=== PATIENT | female | born 1960 | race Caucasian/White ===

== ENCOUNTER 2020-05-03 17:02 | Outpatient (REF) | payer OTHER, SELFPAY ==
[2020-05-04 15:42] LABS: Influenza A PCR NEGATIVE (Negative)
[2020-05-04 15:43] LABS: Influenza B PCR NEGATIVE (Negative); Resp Syncy Virus RNA Qual PCR NEGATIVE (Negative)
[2020-05-04 15:44] LABS: SARS COV2 PCR INHOUSE NEGATIVE (Negative)
== END 2020-05-03 17:03 | disposition home or self-care (01) ==
LOC: HO.LAB 17:02
PROVIDERS: Visit Provider Nurse Practitioner Family
DX: R50.9 Fever, unspecified (principal); Z20.828 Contact with and (suspected) exposure to other viral communicable diseases
CPT/HCPCS: 0241U; U0003

== ENCOUNTER 2020-05-31 20:27 | Emergency (ER) | payer MEDICARE, SELFPAY ==
[2020-05-31 20:43] VITALS: BP 145/77; BP 152/79; PULSE 70; PULSE 72; RESP 16; TEMP 37.1; O2SAT 97; BMI 40.6
--- NOTE | 2020-05-31 20:54 | ED.GENADULT ---
HPI - General Adult General Chief complaint: General Medical Stated complaint: HYPERTENSION Time Seen by Provider: 05/31/20 20:54 Source: patient Mode of arrival: ambulatory Limitations: no limitations History of Present Illness HPI narrative: Patient has history of anxiety and mild hypertension on hydrochlorothiazide feeling very anxious checked her blood pressure at home was 170/93 on arrival is 145/77 per EMS denies any headache no nausea no vomiting Related Data Home Medications Medication Instructions Recorded Confirmed atenolol 100 mg PO DAILY 06/06/20 06/06/20 atorvastatin 10 mg PO BEDTIME 06/06/20 06/06/20 buprenorphine-naloxone [Zubsolv] 1 tab SUBLINGUAL DAILY 06/06/20 06/06/20 cholecalciferol (vitamin D3) 125 mcg PO DAILY 06/06/20 06/06/20 [Vitamin D3] trazodone 150 mg PO BEDTIME 06/06/20 06/06/20 Previous Rx's Medication Instructions Recorded naloxegol 25 mg tablet 25 mg PO QAM #90 tab 04/27/20 amoxicillin 875 mg-potassium 1 tab PO BID 10 Days #20 tab 05/03/20 clavulanate 125 mg tablet lisinopril 40 mg tablet 40 mg PO DAILY #90 tab 05/30/20 lorazepam [Ativan] 1 mg PO BEDTIME PRN #14 tab 05/31/20 hydrochlorothiazide 25 mg tablet 25 mg PO DAILY #90 tab 06/21/20 Allergies Allergy/AdvReac Type Severity Reaction Status Date / Time diazepam [From VALIUM] AdvReac Mild NERVOUS Verified 05/31/20 20:42 hydrocodone [From Vicodin] AdvReac Mild VOMITING Verified 05/31/20 20:42 tramadol [From Ultram] AdvReac Mild VOMITING Verified 05/31/20 20:42 Review of Systems Review of Systems: Constitutional : No Weight loss, No Fever, No Chills ENT/Mouth : No sore throat, No Rhinorrhea Eyes: No Eye Pain, No Swelling Cardiovascular : No Chest Pain, no palpitations Respiratory : No Cough, No Sputum, no shortness of breath Gastrointestinal : no Nausea, No Vomiting, No Diarrhea, No abdominal Pain, no black stools Genitourinary : No Dysuria, No Urinary Frequency Musculoskeletal : No joint pain, No Myalgias, No Joint Swelling Skin : No Skin Lesions, No rash Neuro : No Weakness, No Numbness, No Dizziness, No Headache Psych : No Anxiety/Panic, No Depression Heme/Lymph: No Bruising, No Lymphadenopathy Endocrine : No Polyuria, No Polydipsia All other systems reviewed and are negative [facility], LAT[facility] Past Medical History Medical History Anxiety Hypertension Surgical History History of ankle surgery Hx of cataract extraction Hx of section Hx of tonsillectomy Physical Exam Vital Signs: Vital Signs: Last Vital Signs Temp 98.7 F 05/31/20 20:43 Pulse 72 05/31/20 20:43 Resp 16 05/31/20 20:43 BP 152/79 H 05/31/20 20:43 Pulse Ox 97 05/31/20 20:43 Body Mass Index 40.6 Appearance: Alert. Oriented X3. No acute distress. Very anxious blood pressure 152/79 Eyes: Pupils equal, round and reactive to light. ENT: Pharynx normal. Neck: Normal inspection. Neck supple. CVS: Normal heart rate and rhythm. Pulses normal. Respiratory: No respiratory distress. Breath sounds normal. Abdomen: Soft and nontender. Bowel sounds are present, no mass palpable, no CVA tenderness Skin: Skin warm and dry. Normal skin color. Normal skin turgor. Extremities: No lower extremity edema. Neuro: Oriented X 3. No motor deficit. No sensory deficit. Medical Decision Making MDM Narrative Medical decision making narrative: Patient with history of hypertension/anxiety comes with anxiety and slightly high blood pressure will give her Ativan for anxiety advised her to relax at home follow-up with PCP Discharge Plan Discharge Clinical Impression: Anxiety Patient Disposition: Home, Self-Care Instructions: Anxiety (ED) Additional Instructions: take any medication as advised and continue taking blood pressure medicines. Follow with PCP Prescriptions: New lorazepam [Ativan] 1 mg tablet 1 mg PO BEDTIME PRN (Reason: anxiety) Qty: 14 RF: 0 No Action Movantik 25 mg tablet 25 mg PO QAM Qty: 90 RF: 1 lisinopril 40 mg tablet 40 mg PO DAILY Qty: 90 RF: 3 hydrochlorothiazide 25 mg tablet 25 mg PO DAILY Qty: 90 RF: 3 atorvastatin 10 mg Tablet 10 mg PO BEDTIME RF: 0 atenolol 100 mg Tablet 100 mg PO DAILY RF: 0 trazodone 150 mg Tablet 150 mg PO BEDTIME RF: 0 cholecalciferol (vitamin D3) [Vitamin D3] 125 mcg (5,000 unit) Tablet 125 mcg PO DAILY RF: 0 Zubsolv 5.7-1.4 mg Tablet, Sublingual 1 tab SUBLINGUAL DAILY RF: 0 amoxicillin-pot clavulanate [Augmentin] 875-125 mg tablet 1 tab PO BID 10 Days Qty: 20 RF: 0 Interventions: ED Discharge Assessment Last Done: 05/31/20 21:28 Discharge Date/Time: 05/31/20 21:30
[2020-05-31] MEDS: LORazepam 1 MG TABLET PO (21:12)
--- NOTE | 2020-05-31 21:21 | PC.NURSE ---
pt resting quietly on stretcher, no distress or complaint of pain. pt asking when she would be ready to go.
== END 2020-05-31 21:30 | disposition home or self-care (01) ==
PROVIDERS: Emergency Provider Internal Medicine
DX: I10 Essential (primary) hypertension (principal)
CPT/HCPCS: 99283

== ENCOUNTER 2020-08-04 08:58 | Emergency (ER) | payer OTHER, SELFPAY ==
--- NOTE | ~2020-08-04 | XR_ITS ---
EXAMINATION: XR LUMBOSACRAL SPINE CLINICAL INFORMATION: Right lumbar pain COMPARISON: Radiographs lumbar spine 10/24/2007 TECHNIQUE: Three views of the lumbosacral spine. FINDINGS: There is normal lumbar segmentation with 5 nonrib-bearing lumbar vertebrae with normal lumbar lordosis. There is chronic loss of height vertebral bodies T11 and L1 similar to remote prior radiographs 2008. There is no acute vertebral compression, spondylolisthesis, or destructive process. Again, there are degenerative changes lower thoracic spine and at L1-L2 and L2-L3 with some increased endplate sclerosis and spurring. There are prominent degenerative disc changes lumbosacral junction with disc narrowing and vertebral spurring, new from 2008. The SI joints and visualized sacrum are unremarkable. XR/XR lumbar spine 2-3V IMPRESSION: 1. Prominent degenerative disc changes L5-S1. 2. Degenerative disc changes lower thoracic spine and L1-L2 and L2-L3. 3. Chronic mild vertebral compressions T11 and L1 similar to 2008.
[2020-08-04 09:04] VITALS: BP 137/65; PULSE 77; RESP 16; TEMP 36.3; O2SAT 98; BMI 43.1
--- NOTE | 2020-08-04 09:13 | ED_ITS ---
HPI - General Adult General Chief complaint: General Medical Stated complaint: RIGHT SIDE BACK PAIN Source: patient Mode of arrival: ambulatory Limitations: no limitations History of Present Illness HPI narrative: Presents to ED for right flank pain since Saturday. Patient states pain is worse on movement. Patient denies any dysuria, hematuria, fever, chills, nausea, vomiting, diarrhea, or any abdominal pain. Related Data Home Medications Medication Instructions Recorded Confirmed atenolol 100 mg PO DAILY 06/06/20 06/06/20 buprenorphine-naloxone [Zubsolv] 1 tab SUBLINGUAL DAILY 06/06/20 06/06/20 cholecalciferol (vitamin D3) 125 mcg PO DAILY 06/06/20 06/06/20 [Vitamin D3] trazodone 150 mg PO BEDTIME 06/06/20 06/06/20 Previous Rx's Medication Instructions Recorded naloxegol 25 mg tablet 25 mg PO QAM #90 tab 04/27/20 amoxicillin 875 mg-potassium 1 tab PO BID 10 Days #20 tab 05/03/20 clavulanate 125 mg tablet lisinopril 40 mg tablet 40 mg PO DAILY #90 tab 05/30/20 lorazepam [Ativan] 1 mg PO BEDTIME PRN #14 tab 05/31/20 hydrochlorothiazide 25 mg tablet 25 mg PO DAILY #90 tab 06/21/20 bisacodyl 5 mg tablet,delayed 5 mg PO ONCE 1 Days #2 tab 07/01/20 release miralax See Rx Instructions PO ONCE #238 g 07/01/20 atorvastatin 10 mg tablet 10 mg PO BEDTIME #90 tab 07/05/20 cholecalciferol (vitamin D3) 125 125 mcg PO DAILY #90 cap 07/27/20 mcg (5,000 unit) capsule cefpodoxime 100 mg PO Q12H 7 Days #14 tab 08/04/20 cyclobenzaprine 10 mg PO TID PRN #18 tab 08/04/20 naproxen 500 mg PO BID PRN #20 tab 08/04/20 Allergies Allergy/AdvReac Type Severity Reaction Status Date / Time diazepam [From VALIUM] AdvReac Mild NERVOUS Verified 05/31/20 20:42 hydrocodone [From Vicodin] AdvReac Mild VOMITING Verified 05/31/20 20:42 tramadol [From Ultram] AdvReac Mild VOMITING Verified 05/31/20 20:42 Review of Systems Review of Systems: Yes all other systems are reviewed and are negative Constitutional: Constitutional: Reports as per HPI and Reports no additional constitutional complaints Eyes: Eyes: Reports as per HPI and Reports no additional eye complaints ENT: Reports system reviewed and no additional complaints, except as documented and Reports as per HPI Cardiovascular: Cardiovascular: Reports as per HPI and Reports no additional cardiovascular complaints Respiratory: Respiratory: Reports as per HPI and Reports no additional respiratory complaints Gastrointestinal: Gastrointestinal: Reports as per HPI and Reports no additional gastrointestinal complaints Genitourinary: Genitourinary: Reports no additional female genitourinary complaints and Reports as per HPI Musculoskeletal: Musculoskeletal: Reports no additional musculoskeletal complaints, Reports as per HPI and Reports back pain (Right flank) Neurologic: Reports system reviewed and no additional complaints, except as documented and Reports as per HPI Psychiatric: Psychiatric: Reports no additional psychiatric complaints and Reports as per HPI PMFSH Past Medical History Medical History Anxiety Hypertension Surgical History History of ankle surgery Hx of cataract extraction Hx of section Hx of tonsillectomy Social History Social History Smoked in Last 30 Days: No Advance Directives: No Advance Directives Information Provided: No Physical Exam Vital Signs: Vital Signs: Last Vital Signs Temp 97.4 F 08/04/20 09:04 Pulse 59 08/04/20 11:04 Resp 16 08/04/20 11:04 BP 105/51 L 08/04/20 11:04 Pulse Ox 98 08/04/20 11:04 Body Mass Index 43.1 Const: General: cooperative, healthy appearing, comfortable, no acute distress, well developed, alert, awake and Physically active Orientation /consciousness: patient oriented x3 HENMT: Head: Yes normal to inspection, Yes No palpable skull fracture present, Yes normocephalic, Yes atraumatic and No abrasion Eyes: General: appearance normal, both eyes and all related structures Neck: Neck: Yes normal visual inspection, Yes full ROM, Yes no lymphadenopathy, Yes no meningeal signs, Yes trachea midline, Yes supple and No tender Chest: Chest palpation & inspection: normal inspection of the chest and normal palpation of entire chest wall Resp: Effort & Inspection: normal respiratory effort and able to speak in complete sentences Auscultation: clear to auscultation bilaterally Cardio: Jugular venous distension: no JVD Heart sounds: S1 normal heart sound present and S2 normal heart sound present GI: Inspection: Yes normal to inspection and No abdominal wall ecchymosis Palpation (GI): Soft to palpation, not firm, nontender, no guarding and not rigid : General: No CVA tenderness and Yes no CVA tenderness Back/Spine/Pelvis: Back: no CVA tenderness, No CVA tenderness and back tenderness (Right muscular lumbar.) Skin: General skin exam: no rashes or lesions noted and elasticity normal Neuro: General: patient oriented x3, no meningeal signs and CN's II-XI intact bilaterally Cranial nerves: Yes CN's II-XII intact bilaterally Extrem: General: Yes normal to inspection and Yes full ROM Psych: Appearance: grossly normal, well kempt and not disheveled Course Course Course Narrative: History physical exam indicate more muscular back pain. Neg ative for CV of flanks. Due to age will do basic labs and make sure there is no acute kidney failure injury. Also send lip LFTs make sure there is no possibilities of cholecystitis. Patient had fluids, [facility] 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 Urinalysis shows UTI. Not suspecting pyelonephritis. Patient does not have any positive CVA and flank. Patient is not febrile or tachycardic. Patient will be discharged with antibiotics and pain med Time: 11:43 Medical Decision Making [facility] Narrative Medical decision making narrative: UTI. Lumbar radicular past Lab Data Result diagrams: 08/04/20 09:48 08/04/20 09:48 Labs: Lab Results 08/04/20 08/04/20 08/04/20 Range/Units 09:48 09:48 09:48 WBC 4.2 L (4.8-10.8) X10*3/uL RBC 4.46 (4.20-5.50) X10*6/uL Hgb 12.9 (12.0-16.0) g/dl Hct 39.1 (37-47) % MCV 87.7 (80-98) fL MCH 28.9 (27.0-33.0) pg MCHC 33.0 (31.0-35.0) g/dl RDW 11.7 (11.0-16.0) % Plt Count 241 (160-400) X10*3/uL MPV 9.4 (9.4-12.3) fL Immature Gran % (Auto) 0.2 (0.0-0.4) % Neut % (Auto) 65.4 (45-73) % Lymph % (Auto) 22.4 (20-40) % Patrick % (Auto) 7.7 (2-11) % Eos % (Auto) 3.6 (0-4) % Baso % (Auto) 0.7 (0-2) % Lymph # (Auto) 0.9 L (1.2-4.9) X10*3/uL Patrick # (Auto) 0.3 (0.1-1.2) X10*3/uL Eos # (Auto) 0.2 (0.0-0.4) X10*3/uL Baso # (Auto) 0.0 (0.0-0.2) X10*3/uL Abs Immat Gran (auto) 0.01 (0.00-0.03) X10*3/uL Absolute Neuts (auto) 2.7 (2.0-8.3) X10*3/uL Absolute Nucleated RBC 0.000 (0.0-0.012) X10*3/uL Nucleated RBC % (auto) 0.0 (0.0-0.2) /100WBC PT 11.5 (10.8-13.0) SEC INR 1.0 (0.9-1.1) APTT 32.7 (24.1-38.0) SEC Sodium 141 (135-145) mmol/L Potassium 3.9 (3.3-5.1) mmol/L Chloride 102 (96-108) mmol/L Carbon Dioxide 32 H (22-29) mmol/L Anion Gap 11 L (12-20) BUN 16 (9-16) mg/dL Creatinine 0.76 (0.5-1.4) mg/dL Estim Creat Clear Calc 100.9 Estimated GFR > 60 Random Glucose 116 H (60-115) mg/dL Calcium 8.8 (8.4-10.2) mg/dL Total Bilirubin 0.4 (0.0-1.0) mg/dL Direct Bilirubin 0.2 (0.0-0.5) mg/dL AST 18 (5-31) U/L ALT 18 (0-31) U/L Alkaline Phosphatase 74 (39-117) U/L Total Protein 7.2 (6.5-8.0) g/dL Albumin 4.3 (3.5-5.0) g/dL Lipase 18 (8-78) U/L Urine Color Urine Appearance Urine pH (5.0-8.0) Ur Specific Irwin (1.005-1.025) Urine Protein (NEG-TRACE) MG/DL Urine Glucose (UA) (NEG) MG/DL Urine Ketones (NEG) MG/DL Urine Blood (NEG) Urine Nitrite (NEG) Ur Leukocyte Esterase (NEG) Urine RBC (0) /HPF Urine WBC (0-4) /HPF Ur Squamous Epith Cells /LPF Ur Renal Epithelial Cell /LPF Urine Bacteria /LPF 08/04/20 Range/Units 09:48 WBC (4.8-10.8) X10*3/uL RBC (4.20-5.50) X10*6/uL Hgb (12.0-16.0) g/dl Hct (37-47) % MCV (80-98) fL MCH (27.0-33.0) pg MCHC (31.0-35.0) g/dl RDW (11.0-16.0) % Plt Count (160-400) X10*3/uL MPV (9.4-12.3) fL Immature Gran % (Auto) (0.0-0.4) % Neut % (Auto) (45-73) % Lymph % (Auto) (20-40) % Patrick % (Auto) (2-11) % Eos % (Auto) (0-4) % Baso % (Auto) (0-2) % Lymph # (Auto) (1.2-4.9) X10*3/uL Patrick # (Auto) (0.1-1.2) X10*3/uL Eos # (Auto) (0.0-0.4) X10*3/uL Baso # (Auto) (0.0-0.2) X10*3/uL Abs Immat Gran (auto) (0.00-0.03) X10*3/uL Absolute Neuts (auto) (2.0-8.3) X10*3/uL Absolute Nucleated RBC (0.0-0.012) X10*3/uL Nucleated RBC % (auto) (0.0-0.2) /100WBC PT (10.8-13.0) SEC INR (0.9-1.1) APTT (24.1-38.0) SEC Sodium (135-145) mmol/L Potassium (3.3-5.1) mmol/L Chloride (96-108) mmol/L Carbon Dioxide (22-29) mmol/L Anion Gap (12-20) BUN (9-16) mg/dL Creatinine (0.5-1.4) mg/dL Estim Creat Clear Calc Estimated GFR Random Glucose (60-115) mg/dL Calcium (8.4-10.2) mg/dL Total Bilirubin (0.0-1.0) mg/dL Direct Bilirubin (0.0-0.5) mg/dL AST (5-31) U/L ALT (0-31) U/L Alkaline Phosphatase (39-117) U/L Total Protein (6.5-8.0) g/dL Albumin (3.5-5.0) g/dL Lipase (8-78) U/L Urine Color STRAW Urine Appearance CLEAR Urine pH 5.5 (5.0-8.0) Ur Specific Irwin 1.015 (1.005-1.025) Urine Protein NEG (NEG-TRACE) MG/DL Urine Glucose (UA) NEG (NEG) MG/DL Urine Ketones NEG (NEG) MG/DL Urine Blood TRACE (NEG) Urine Nitrite NEG (NEG) Ur Leukocyte Esterase 2+ H (NEG) Urine RBC 1-4 (0) /HPF Urine WBC 30-49 H (0-4) /HPF Ur Squamous Epith Cells 1+ /LPF Ur Renal Epithelial Cell 1+ /LPF Urine Bacteria NONE /LPF Discharge Plan Discharge Clinical Impression: UTI (urinary tract infection), Degenerative disc disease at L5-S1 level Patient Disposition: Home, Self-Care Instructions: Urinary Tract Infection in Women (ED), Degenerative Disc Disease (ED) Additional Instructions: Return to the ED for any fever, chills, nausea, vomiting, hematuria, dysuria, urinary/bowel incontinence, severe back pain, severe flank pain, or any other concerning symptoms. Prescriptions: New cefpodoxime 100 mg tablet 100 mg PO Q12H 7 Days Qty: 14 RF: 0 naproxen 500 mg tablet 500 mg PO BID PRN (Reason: pain) Qty: 20 RF: 0 cyclobenzaprine 10 mg tablet 10 mg PO TID PRN (Reason: pain) Qty: 18 RF: 0 No Action Movantik 25 mg tablet 25 mg PO QAM Qty: 90 RF: 1 lisinopril 40 mg tablet 40 mg PO DAILY Qty: 90 RF: 3 hydrochlorothiazide 25 mg tablet 25 mg PO DAILY Qty: 90 RF: 3 bisacodyl [Dulcolax (bisacodyl)] 5 mg tablet,delayed release (DR/EC) 5 mg PO ONCE 1 Days Qty: 2 RF: 0 miralax See Rx Instructions PO ONCE Qty: 238 RF: 0 atorvastatin 10 mg tablet 10 mg PO BEDTIME Qty: 90 RF: 3 cholecalciferol (vitamin D3) 125 mcg (5,000 unit) capsule 125 mcg PO DAILY Qty: 90 RF: 3 atenolol 100 mg Tablet 100 mg PO DAILY RF: 0 trazodone 150 mg Tablet 150 mg PO BEDTIME RF: 0 cholecalciferol (vitamin D3) [Vitamin D3] 125 mcg (5,000 unit) Tablet 125 mcg PO DAILY RF: 0 Zubsolv 5.7-1.4 mg Tablet, Sublingual 1 tab SUBLINGUAL DAILY RF: 0 lorazepam [Ativan] 1 mg tablet 1 mg PO BEDTIME PRN (Reason: anxiety) Qty: 14 RF: 0 amoxicillin-pot clavulanate [Augmentin] 875-125 mg tablet 1 tab PO BID 10 Days Qty: 20 RF: 0 Referrals: Radha Antoine MD [Primary Care Provider] - 2 days (UA positive for UTI. Lumbar and thoracic spine x-ray positive for degenerative disc disease. Negative for leukocytosis.) Interventions: ED Discharge Assessment Last Done: 08/04/20 12:18 Discharge Date/Time: 08/04/20 12:19 Print Language: Algerian
[2020-08-04 09:57] LABS: MANUAL DIFF FLAG NO
[2020-08-04] MEDS: Ketorolac Tromethamine 30 MG/ML VIAL IVPUSH (09:57)
[2020-08-04] MEDS: 0.9 % Sodium Chloride 1,000 ML 999 ML IV (09:57)
[2020-08-04 10:03] LABS: Basophils Percent Auto 0.7 % (0-2); Eosinophils Absolute Auto 0.2 X10*3/uL (0.0-0.4); Eosinophils Percent Auto 3.6 % (0-4); Hematocrit 39.1 % (37-47); Hemoglobin 12.9 g/dl (12.0-16.0); Imm Gran Abs Auto 0.01 X10*3/uL (0.00-0.03); Imm Gran Pct Auto 0.2 % (0.0-0.4); Lymphocytes Absolute Auto 0.9 X10*3/uL (1.2-4.9); Lymphocytes Percent Auto 22.4 % (20-40); Mean Corpuscular Hemoglobin 28.9 pg (27.0-33.0); Mean Corpuscular Volume 87.7 fL (80-98); Mean Platelet Volume 9.4 fL (9.4-12.3); Monocytes Absolute Auto 0.3 X10*3/uL (0.1-1.2); Monocytes Percent Auto 7.7 % (2-11); Neutrophils Absolute Auto 2.7 X10*3/uL (2.0-8.3); Neutrophils Percent Auto 65.4 % (45-73); Platelet Count 241 X10*3/uL (160-400); Red Blood Count 4.46 X10*6/uL (4.20-5.50); Red Cell Distribution Width 11.7 % (11.0-16.0); White Blood Count 4.2 X10*3/uL (4.8-10.8)
[2020-08-04 10:07] LABS: Prothrombin Time 11.5 SEC (10.8-13.0)
[2020-08-04 10:09] LABS: Partial Thromboplastin Time 32.7 SEC (24.1-38.0)
[2020-08-04 10:15] LABS: Glucose Urine UA NEG (NEG); Leukocyte Esterase Urine 2+ (NEG); Nitrite Urine NEG (NEG); PH 5.5 (5.0-8.0); Specific Gravity - Urine 1.015 (1.005-1.025); UACC Culture Trigger YES; Urine Blood TRACE (NEG); Urine Ketones NEG (NEG); Urine Protein NEG (NEG-TRACE)
[2020-08-04 10:28] LABS: Alanine Aminotransferase 18 U/L (0-31); Albumin Level 4.3 g/dL (3.5-5.0); Alkaline Phosphatase 74 U/L (39-117); Anion Gap 11 (12-20); Aspartate Amino Transferase 18 U/L (5-31); Bilirubin Direct 0.2 mg/dL (0.0-0.5); Bilirubin Total 0.4 mg/dL (0.0-1.0); Blood Urea Nitrogen 16 mg/dL (9-16); Calcium 8.8 mg/dL (8.4-10.2); Carbon Dioxide 32 mmol/L (22-29); Chloride 102 mmol/L (96-108); Creatinine Clr Calc Pharmacy 100.9; Estimated Glomerular Filt Rate > 60; Glucose Random 116 mg/dL (60-115); Lipase 18 U/L (8-78); Potassium 3.9 mmol/L (3.3-5.1); Sodium 141 mmol/L (135-145); Total Protein 7.2 g/dL (6.5-8.0)
[2020-08-04 10:35] LABS: Appearance Urine CLEAR; Color Urine STRAW
[2020-08-04 11:04] VITALS: BP 105/51; PULSE 59; RESP 16; O2SAT 98
[2020-08-04 11:12] LABS: Renal Epithelial Cells Urine 1+ /LPF; Squamous Epithelial Cell Urine 1+ /LPF; WBC Urine 30-49 /HPF (0-4)
== END 2020-08-04 12:19 | disposition home or self-care (01) ==
PROVIDERS: Physician Assistant; Emergency Provider Internal Medicine; PCP Internal Medicine
DX: M51.37 Other intervertebral disc degeneration, lumbosacral region (principal); N39.0 Urinary tract infection, site not specified; M54.5 Low back pain; Z79.899 Other long term (current) drug therapy
CPT/HCPCS: 36415; 72100; 80053; 80076; 81001; 81003; 82248; 83690; 85025; 85610; 85730; 87086; 96361; 96374; 99284; J1885

== ENCOUNTER 2020-08-22 14:16 | Outpatient (REF) | payer OTHER, SELFPAY ==
[2020-08-25 11:42] LABS: HPV mRNA E6/E7 Not Detected (Not Detected)
== END 2020-08-22 14:17 | disposition home or self-care (01) ==
LOC: HO.LNP 14:16
PROVIDERS: Visit Provider Internal Medicine
DX: Z12.4 Encounter for screening for malignant neoplasm of cervix (principal); Z11.51 Encounter for screening for human papillomavirus (HPV)
CPT/HCPCS: 87624; 88142

== ENCOUNTER 2020-08-23 12:36 | Outpatient (REF) | payer OTHER, SELFPAY ==
[2020-08-23 14:28] LABS: Alanine Aminotransferase 26 U/L (0-31); Albumin Level 4.7 g/dL (3.5-5.0); Alkaline Phosphatase 93 U/L (39-117); Anion Gap 12 (12-20); Aspartate Amino Transferase 24 U/L (5-31); Bilirubin Total 0.8 mg/dL (0.0-1.0); Blood Urea Nitrogen 15 mg/dL (9-16); Calcium 9.5 mg/dL (8.4-10.2); Carbon Dioxide 32 mmol/L (22-29); Chloride 103 mmol/L (96-108); Cholesterol 181 mg/dL; Estimated Glomerular Filt Rate > 60; Glucose Fasting 104 mg/dL (60-99); HDL Cholesterol 75 mg/dL; LDL Cholesterol Calculated 89 mg/dl; Potassium 4.2 mmol/L (3.3-5.1); Sodium 143 mmol/L (135-145); Total Protein 7.8 g/dL (6.5-8.0); Triglycerides 86 mg/dL
[2020-08-23 14:48] LABS: Estimated Average Glucose 108 mg/dL; Hemoglobin A1c % 5.4 %
[2020-08-23 14:50] LABS: Vitamin D 25-OH Total 42.7 ng/mL (>30)
== END 2020-08-23 12:37 | disposition home or self-care (01) ==
LOC: HO.HMGCLDS 12:36
PROVIDERS: PCP Internal Medicine; Visit Provider Internal Medicine
DX: Z00.00 Encounter for general adult medical examination without abnormal findings (principal); I10 Essential (primary) hypertension; E78.00 Pure hypercholesterolemia, unspecified; F19.10 Other psychoactive substance abuse, uncomplicated
CPT/HCPCS: 36415; 80053; 80061; 82306; 83036

== ENCOUNTER 2020-08-24 09:04 | Day surgery (SDC) | payer OTHER, SELFPAY ==
[2020-06-06 15:42] VITALS: BMI 38.7
[2020-08-18 14:19] VITALS: BMI 40.5
--- NOTE | 2020-08-23 08:59 | P.CONAN_ITS ---
Documented by User: Lety Clementsney 08/23/20 09:01 HPI - Anesthesia Eval Consult details Narrative: 60yo F for Colonoscopy PMFSH Active Problems Active Problems: All Active Problems (Updated 08/22/20 @ 10:28 by Radha Antoine MD) Substance abuse (Acute) Elevated cholesterol (Acute) Hypertension (Acute) Mammogram normal (Acute) Annual physical exam (Acute) Fever (Acute) Past Medical History Medical History Annual physical exam Anxiety Arthritis Back pain COVID-19 vaccine administered Elevated cholesterol Hepatitis Hypertension Lab test negative for COVID-19 virus Mammogram normal Substance abuse Family History Family History Father Stroke Mother Renal cancer CAD (coronary artery disease) HTN (hypertension) Paternal Grandfather Diabetes mellitus Brother No problems noted. Sister No problems noted. Surgical History Surgical History History of ankle surgery Hx of cataract extraction Hx of section Hx of tonsillectomy Social History Social History Are you a primary healthcare administrative assistant to a significant other at home: No Do you presently have visiting nurse or other home services: No Smoking Status: Never smoker Substance Use Type: Former Substance User and Opiates Substance Use Type Other:: clean X5 years-taking suboxone Have you been hit, kicked, punched, or otherwise hurt by someone within the past year? If so, by whom?: No Advance Directives Information Provided: No Recently lost weight without trying: No Meds Allergies Allergy/AdvReac Type Severity Reaction Status Date / Time No Known Allergies Allergy Verified 08/24/20 09:10 Home Medications Medication Instructions Recorded Confirmed Last Taken Type atenolol 100 mg PO DAILY 06/06/20 08/18/20 Unknown History buprenorphine-naloxone [Zubsolv] 1 tab SUBLINGUAL DAILY 06/06/20 08/18/20 Unknown History cholecalciferol (vitamin D3) 125 mcg PO DAILY 06/06/20 08/18/20 Unknown History [Vitamin D3] Exam Exam Date and Time: August 23, 2020 0859 Height,Weight and Vital Signs: Height 5 ft 7 in Weight 117.48 kg Pertinent Lab Results Pertinent Lab Results: Laboratory Tests 08/04/20 08/04/20 09:48 09:48 WBC 4.2 L Hgb 12.9 Hct 39.1 Plt Count 241 Sodium 141 Potassium 3.9 Chloride 102 Carbon Dioxide 32 H BUN 16 Creatinine 0.76 Assessment and Plan Assessment Anesthesia Assessment: Chart Reviewed Documented by User: Yrai Looney 08/24/20 09:22 [facility] Past Medical History Medical History Annual physical exam Anxiety Arthritis Back pain COVID-19 vaccine administered Elevated cholesterol Hepatitis Hypertension Lab test negative for COVID-19 virus Mammogram normal Substance abuse Family History Family History Father Stroke Mother Renal cancer CAD (coronary artery disease) HTN (hypertension) Paternal Grandfather Diabetes mellitus Brother No problems noted. Sister No problems noted. Surgical History Surgical History History of ankle surgery Hx of cataract extraction Hx of section Hx of tonsillectomy Social History Social History Are you a primary healthcare administrative assistant to a significant other at home: No Do you presently have visiting nurse or other home services: No Smoking Status: Never smoker Substance Use Type: Former Substance User and Opiates Substance Use Type Other:: clean X5 years-taking suboxone Have you been hit, kicked, punched, or otherwise hurt by someone within the past year? If so, by whom?: No Advance Directives Information Provided: No Recently lost weight without trying: No Meds Allergies Allergy/AdvReac Type Severity Reaction Status Date / Time No Known Allergies Allergy Verified 08/24/20 09:10 Home Medications Medication Instructions Recorded Confirmed Last Taken Type atenolol 100 mg PO DAILY 06/06/20 08/18/20 Unknown History buprenorphine-naloxone [Zubsolv] 1 tab SUBLINGUAL DAILY 06/06/20 08/18/20 Unknown History cholecalciferol (vitamin D3) 125 mcg PO DAILY 06/06/20 08/18/20 Unknown History [Vitamin D3] Exam Airway Mallampati Class: II TM Dist: >3cm Neck ROM: Full Loose/Missing/Broken Teeth: Yes and Upper Heart: RRR Lungs: CTA Assessment and Plan Assessment Anesthesia Assessment: Anesthesia Plan Discussed and Chart Reviewed Final Anesthetic Review NPO: Yes ASA Class: II Final Preanesthetic Review: Meds/Allgs Chart Reviewed and Consent Obtained/Reviewed Patient Risk: Intermediate Procedure Risk: Low Anesthetic Plan Anesthetic Plan: MAC: Disposition: Standard PACU
[2020-08-24 09:27] VITALS: BP 143/77; PULSE 92; RESP 18; TEMP 36.1; O2SAT 97
[2020-08-24] MEDS: Lactated Ringers 1,000 ML 100 ML IVCONT (09:37)
--- NOTE | 2020-08-24 09:57 | MHC.SHP ---
Pre-Procedural Eval Section B Chief Complaint: FHX OF COLON POLYPS Relevant Family History (Specify if Yes): Yes Relevant Social History: None Present Medications: see Short Stay Collaborative assessment Medical History: Significant History (Annual physical exam Anxiety Arthritis Back pain COVID-19 vaccine administered Elevated cholesterol Hepatitis Hypertension Lab test negative for COVID-19 virus Mammogram normal Substance abuse) History of Previous Operations: Relevant previous surgery/procedure and date(s) (History of ankle surgery Hx of cataract extraction Hx of section Hx of tonsillectomy) Allergies: Allergies Allergy/AdvReac Type Severity Reaction Status Date / Time No Known Allergies Allergy Verified 08/24/20 09:10 Review of Systems Sugical H&P ROS: Negative: Constitution, Cardiovascular, Respiratory, Neurological, Psychiatric, Hem-Onc, Allergic/Immunologic, Gastrointestinal, Genitourinary, Musculoskeletal, Integumentary, Endocrine and Eyes/Ears/Nose/Throat Exam Surgical H&P Exam: Normal: HEENT, Normal: Heart, Normal: Lungs, Normal: Extremities, Normal: Abdomen, Normal: Skin and Normal: Neurological Plan Diagnosis/Plan: Unchanged I have reviewed the history and physical and performed a pertinent physical examination on my patient. No changes have occurred unless specified.
--- NOTE | 2020-08-24 09:59 | PM.OP ---
Brief Operative Note Date of Service: 08/24/20 Pre-op diagnosis: colon screen Post-op diagnosis: same Procedure: see op note Surgeon: Fadi Norton MD Anesthesia: MAC Estimated blood loss (mL): 0 Condition: stable Disposition: PACU
--- NOTE | 2020-08-24 09:59 | W.PM.OPN ---
Operative Note Operative Note Date of Service: 08/24/20 Narrative: Operative Information Procedure Description: Colonoscopy COLONOSCOPY Instrument: Olympus variable stiffness pediatric scope 190L Colonoscopy Monitoring: Vital signs and clinical assessment, continuous EKG monitoring, Pulse oximetry, Carbon Dioxide monitoring and blood pressure monitoring were done throughout the procedure. Colon withdrawal time was 8 minutes. Procedure: The patient was placed in the left lateral decubitis position and pre-procedure medications were administered. After a digital rectal examination of the ano-rectum, the video colonoscope was inserted into the rectum and advanced through the colon to the cecum/TI. The colonoscope was slowly withdrawn in a retrograde panoramic fashion and the colon mucosa was carefully examined including a retroflexed view of the rectum. Findings and interventions are described below. Procedure Difficulty: moderate due to looping, pressure applied to LLQ Findings: Terminal Ileum-normal Cecum:normal Ascending Colon: normal Transverse Colon -normal Descending Colon:normal Sigmoid Colon: normal Rectum: Retroflexion with small internal hemorrhoids, grade I Anorectum - normal Colon preparation: [place] Bowel Preparation Scale Right colon; 2 Transverse colon: 3 Left colon; 2 (0 = Unprepared colon segment with mucosa not seen due to solid stool that cannot be cleared. 1 = Portion of mucosa of the colon segment seen, but other areas of the colon segment not well seen due to staining, residual stool and/or opaque liquid. 2 = Minor amount of residual staining, small fragments of stool and/or opaque liquid, but mucosa of colon segment seen well. 3 = Entire mucosa of colon segment seen well with no residual staining, small fragments of stool or opaque liquid) Impression and Post Procedure Diagnosis: internal hemorrhoids Plan: High fiber diet leaflet Avoid straining at stool, epsom salts and sitz bath, anusol supps or cream as needed Repeat Colonoscopy in 10 years or earlier if clinically indicated Above findings were reviewed with the patient and relevant handouts were provided if indicated.
[2020-08-24 10:46] VITALS: BP 89/47; PULSE 79; RESP 20; TEMP 37.1; O2SAT 98
[2020-08-24 11:01] VITALS: BP 111/70; PULSE 77; RESP 20; TEMP 37.1; O2SAT 95
== END 2020-08-24 11:45 | disposition home or self-care (01) ==
PROVIDERS: Visit Provider Internal Medicine Gastroenterology
PROC: 0DJD8ZZ Inspection of Lower Intestinal Tract, Via Natural or Artificial Opening Endoscopic (ICD-10-PCS; CPT 45378; principal; 2020-08-24 10:00)
DX: Z12.11 Encounter for screening for malignant neoplasm of colon (principal); Z83.71 Family history of colonic polyps; K64.0 First degree hemorrhoids; I10 Essential (primary) hypertension; F11.20 Opioid dependence, uncomplicated; Z86.19 Personal history of other infectious and parasitic diseases; Z79.899 Other long term (current) drug therapy
CPT/HCPCS: G0105

== ENCOUNTER 2022-06-07 07:40 | Emergency (ER) | payer OTHER, SELFPAY ==
--- NOTE | ~2022-06-07 | XR_ITS ---
EXAMINATION: XR ANKLE, RIGHT CLINICAL INFORMATION: Right ankle injury/swelling COMPARISON: None TECHNIQUE: AP, lateral, and mortise views of the right ankle. FINDINGS: Dome of the talus unremarkable. The malleolus structures appear to be intact. Posterior distal tibia unremarkable. There is small spurring of the anterior distal tibia as well as plantar and dorsal aspects of the calcaneus. Fracture at the base of the right fifth metatarsal is noted. XR/XR ankle RT 2V IMPRESSION: Fracture at the base of right fifth metatarsal. Degenerative changes. No distinct ankle fracture observed.
[2022-06-07 07:45] VITALS: BP 157/75; PULSE 85; RESP 17; TEMP 35.6; O2SAT 98; BMI 41.6
--- OUTSIDE RECORDS SUMMARY | 2022-06-07 08:13 | XMS_ITS | Continuity of Care Document ---
:1960 Author Organization [facility] [place] Address [address], [address] [place] [address]- Care Team Providers Name Role Phone Verónica Crowell MD Primary Care Physician Encounter 07/19/21 - 09/03/21 [facility] [address], [address] [place], [place] [address] Attending Physician: Carlos Alberto Galeas DO Admitting Physician: Carlos Alberto Galeas DO Referring Physician: Carlos Alberto Galeas DO Allergies, Adverse Reactions, Alerts Substance Reaction Severity Status naproxen anxiety Active Immunizations Given and Recorded Vaccine Date Status Refusal Reason tetanus-diphtheria toxoids (Td)1 06/11/11 Given 1Admin Note: [address] INFO SHEET GIVEN Medications atenolol 100 mg oral tablet 1 tablet = 100 mg, By Mouth, Daily, # 30 tablet, 0 Refills, Maintenance, Tablet Start Date: 06/11/11 Status: Orderedclonazepam 0.5 mg oral tablet 0.5, mg, 1, tablet, By Mouth, 3 times a day, 0, 0, 08/27/07 11:09:48, Print ROGELIO Number, 68, ConstantIndicator Start Date: 08/27/07 Status: OrderedKLONopin Tablet By Mouth, 3 times a day, 0 Refills, Maintenance Start Date: 07/02/11 Status: Orderedlisinopril 30 mg oral tablet 1 tablet = 30 mg, By Mouth, Daily, # 30 tablet, 0 Refills, Maintenance, Tablet Start Date: 06/11/11 Status: OrderedMorphine 0 Refills, Maintenance Start Date: 07/02/11 Status: OrderedVitamin D 22156 iu oral capsule 1 capsule = 50,000 International_Units, By Mouth, Every week, 0 Refills, Maintenance Start Date: 12/19/11 Status: Ordered Problem List Condition Effective Dates Status Health Status Informant Anxiety(Confirmed) Active HTN - Hypertension(Confirmed) Active
--- OUTSIDE RECORDS SUMMARY | 2022-06-07 08:13 | XMS_ITS | Continuity of Care Document ---
:1960 Author Organization [facility] [place] Address [address] [place] [address], [facility] [[email or web address] [address] [place] [address]- Care Team Providers Name Role Phone Carlos Alberto Galeas DO Primary Care Physician Encounter 06/05/19 - 06/12/19 [facility] [address], [facility] [[email or web address] [address] [place] [address]- [facility] Attending Physician: Cristina De Los Santos NP Admitting Physician: Cristina De Los Santos NP Referring Physician: Cristina De Los Santos NP Allergies, Adverse Reactions, Alerts Substance Reaction Severity Status naproxen anxiety Active Immunizations Given and Recorded Vaccine Date Status Refusal Reason tetanus-diphtheria toxoids (Td)1 06/11/11 Given 1Admin Note: [employer] INFO SHEET GIVEN Medications atenolol 100 mg [...] Maintenance Start Date: 07/02/11 Status: OrderedVitamin D 71858 iu oral capsule 1 capsule = 50,000 International_Units, By Mouth, Every week, 0 Refills, Maintenance Start Date: 06/11/11 Status: Ordered Problem List Condition Effective Dates Status Health Status Informant Anxiety(Confirmed) Active HTN - Hypertension(Confirmed) Active
--- NOTE | 2022-06-07 08:52 | ED_ITS ---
HPI - Extremity Injury (Lower) General Chief Complaint: Extremity Injury, Lower Stated Complaint: r ankle inj at home Time Seen by Provider: 06/07/22 07:57 Source: patient and family Mode of arrival: ambulatory History of Present Illness HPI Narrative: 61-year-old female who slipped last night without head strike or loss of consciousness and experienced pain after hearing a ?crack? on her right foot. She states that she is able to bear weight and denies any ankle pain. Related Data Home Medications Medication Instructions Recorded Confirmed buprenorphine 5.7 mg-naloxone 1.4 1 tab sublingual DAILY 06/06/20 08/18/20 mg sublingual tablet (Zubsolv) Previous Rx's Medication Instructions Recorded miralax See Rx Instructions PO ONCE #238 07/01/20 grams cefpodoxime 100 mg tablet 100 mg PO Q12H 7 days #14 tabs 08/04/20 bisacodyl 5 mg tablet,delayed 10 mg PO ONCE Bowel Preparation 1 08/17/20 release (Dulcolax (bisacodyl)) day #2 tabs polyethylene glycol 3350 17 238 g PO ONCE 1 day #238 grams 08/17/20 gram/dose oral powder (Miralax) cholecalciferol (vitamin D3) 125 125 mcg PO DAILY #90 tabs 10/31/20 mcg (5,000 unit) tablet (Vitamin D3) atorvastatin 10 mg tablet 10 mg PO BEDTIME #90 tabs 07/28/21 hydrochlorothiazide 25 mg tablet 25 mg PO DAILY #90 tabs 07/28/21 atenolol 100 mg tablet 100 mg PO DAILY #90 tabs 01/17/22 lisinopril 40 mg tablet 40 mg PO DAILY #90 tabs 04/16/22 Allergies Allergy/AdvReac Type Severity Reaction Status Date / Time No Known Allergies Allergy Verified 08/24/20 09:10 Review of Systems Review of Systems: Pertinent positives and negatives as stated in HPI 10 point review of systems is otherwise negative. [facility] Past Medical History Source: nursing notes reviewed Medical History Annual physical exam Anxiety Arthritis Back pain COVID-19 vaccine administered Elevated cholesterol Hepatitis Hypertension Lab test negative for COVID-19 virus Mammogram normal Overweight Substance abuse Surgical History History of ankle surgery Hx of cataract extraction Hx of section Hx of tonsillectomy Family History Family History Father Stroke Mother Renal cancer CAD (coronary artery disease) HTN (hypertension) Paternal Grandfather Diabetes mellitus Brother No problems noted. Sister No problems noted. Social History Social History Are you a primary career and guidance counselor to a significant other at home: No Do you presently have visiting nurse or other home services: No Alcohol intake: never Smoked in Last 30 Days: No Use of substances other than those prescribed or required for medical reasons: No Substance Use Type: Former Substance User and Opiates Advance Directives: No Advance Directives Information Provided: Yes Physical Exam Vital Signs: Vital Signs: Last Vital Signs Temp 96.0 F L 06/07/22 07:45 Pulse 85 06/07/22 07:45 Resp 17 06/07/22 07:45 BP 157/75 H 06/07/22 07:45 Pulse Ox 98 06/07/22 07:45 O2 Del Method 06/07/22 07:45 BMI result Body Mass Index 41.6 VITAL SIGNS: Reviewed. GENERAL: Well developed, well nourished, in no acute distress. HEAD: Normocephalic/atraumatic EYES: PERRLA, EOMI EARS: Ext canals without abnormality OROPHARYNX: no oral lesions noted, posterior pharynx clear LUNGS: Normal breath sounds. No adventitious sounds or accessory muscle use. SpO2<98> CARDIOVASCULAR: Regular rate and rhythm without noted murmurs ABDOMEN: Soft, non-tender, non-distended with bowel sounds. MUSCULOSKELETAL: No tenderness, deformities, or effusions noted on gross inspection. EXTREMITIES: No cyanosis, clubbing or edema; RIGHT ANKLE/FOOT: There is no swelling around the ankle, no tenderness to palpation over the lateral/medial malleoli, there is a small area of ecchymosis noted at the 5th metatarsal and patient able to move toes with sensation intact and pulses palpable at PT/DP. SKIN: Inspection of the skin reveals no rashes NEUROLOGIC: Alert and oriented x 4. Strength and sensation to light touch were grossly intact x 4. Course Course Course Narrative: 61-year-old female with history and clinical presentation most consistent with fracture and doubt sprain. I looked at the results of the x-ray for the right foot and there is a noted fracture at the base of the right 5th metatarsal. All results discussed with patient at bedside and she will have an Ananda wrap and a surgical shoe put in place, she will receive a work note for today but understands that she is able to work but no running or jumping is recommended at this time and she needs to follow-up with her primary care provider. Discharge Plan Discharge Clinical Impression: Closed fracture of fifth metatarsal bone Patient Disposition: Home, Self-Care Instructions: Foot Fracture in Adults (ED), Post Surgical Shoe (ED) Additional Instructions: 1. Patient has fractured right 5th metatarsal and recommend [id number] Ty lenol/ibuprofen as needed for pain control and elevation when possible. 2. I recommend that you follow-up with your primary care provider for further outpatient management. Return to the ER for worsening symptoms. Prescriptions: No Action miralax See Rx Instructions PO ONCE Qty: 238 0RF Rx Instructions: 238 grams PO once; mixed with 64 oz gatorade or crystal light polyethylene glycol 3350 [Miralax] 17 gram/dose powder 238 g PO ONCE 1 Days Qty: 238 0RF Rx Instructions: Take as directed by mouth, bowel prep bisacodyl [Dulcolax (bisacodyl)] 5 mg tablet,delayed release (DR/EC) 10 mg PO ONCE 1 Days Qty: 2 0RF Rx Instructions: Take 2 tablets at 12:00pm the day before your procedure, bowel prep cholecalciferol (vitamin D3) [Vitamin D3] 125 mcg (5,000 unit) tablet 125 mcg PO DAILY Qty: 90 0RF hydrochlorothiazide 25 mg tablet 25 mg PO DAILY Qty: 90 3RF atorvastatin 10 mg tablet 10 mg PO BEDTIME Qty: 90 3RF atenolol 100 mg tablet 100 mg PO DAILY Qty: 90 3RF lisinopril 40 mg tablet 40 mg PO DAILY Qty: 90 1RF Zubsolv 5.7-1.4 mg Tablet, Sublingual 1 tab SUBLINGUAL DAILY cefpodoxime 100 mg tablet 100 mg PO Q12H 7 Days Qty: 14 0RF Rx Instructions: must administer with a meal/food Referrals: Leticia Eldridge MD [Primary Care Provider] - Stand Alone Forms: Work/School Release
== END 2022-06-07 09:59 | disposition home or self-care (01) ==
PROVIDERS: Emergency Provider Student in an Organized Health Care Education/Training Program; PCP Internal Medicine
DX: S92.351A Displaced fracture of fifth metatarsal bone, right foot, initial encounter for closed fracture (principal); M25.571 Pain in right ankle and joints of right foot; W01.0XXA Fall on same level from slipping, tripping and stumbling without subsequent striking against object, initial encounter; Y93.9 Activity, unspecified; Y92.9 Unspecified place or not applicable; Y99.9 Unspecified external cause status; Z79.899 Other long term (current) drug therapy
CPT/HCPCS: 73600; 99283; 99284

== ENCOUNTER 2022-08-01 12:41 | Outpatient (REF) | payer OTHER, SELFPAY ==
--- NOTE | ~2022-08-01 | XR_ITS ---
EXAMINATION: XR CHEST CLINICAL INFORMATION: Other general symptoms and signs COMPARISON: Chest x-ray 12/12/2012 TECHNIQUE: 2 views of the chest were obtained. FINDINGS: The lungs appear clear. No airspace consolidation. No pleural effusion or pneumothorax. The cardiomediastinal silhouette and pulmonary vascularity are within normal limits. No acute osseous injury. Mild multilevel degenerative disc disease in the thoracic spine. Chronic appearing mild height loss of several mid and lower thoracic vertebral bodies noted. XR/XR chest 2V IMPRESSION: 1. No acute pulmonary process.
[2022-08-01 14:40] LABS: Influenza A PCR NEGATIVE (Negative); Influenza B PCR NEGATIVE (Negative); Resp Syncy Virus RNA Qual PCR NEGATIVE (Negative); SARS COV2 PCR INHOUSE NEGATIVE (Negative)
== END 2022-08-01 12:42 | disposition home or self-care (01) ==
LOC: HO.HMGCX 12:41
PROVIDERS: Visit Provider Nurse Practitioner Family
DX: Z20.822 Contact with and (suspected) exposure to COVID-19 (principal); R68.89 Other general symptoms and signs
CPT/HCPCS: 0241U; 71046

== ENCOUNTER 2022-08-29 12:20 | Outpatient (AMB) | payer OTHER, SELFPAY ==
--- NOTE | 2022-08-29 13:02 | MHC.PC.OV ---
Vital Signs 08/29/22 13:07 Height 5 ft 6 in Weight 268 lb BMI 43.2 BP 140/70 H Blood Pressure Location Lt brachial Position Sitting Pulse 70 Pulse Source Pulse Oximeter Pulse Oximetry (%) 97 Oxygen Delivery Method Room Air Intake Visit Reasons: transfer of care from Dr. Antoine/Requests Physical Allergies No Known Allergies Allergy (Verified 08/29/22 13:44) Medication List - Last Reconciled 08/29/22 by Leticia Eldridge MD albuterol sulfate 90 mcg/actuation 2 puffs inhalation Q4-6H PRN 30 days atenolol 100 mg PO DAILY atorvastatin 10 mg PO BEDTIME buprenorphine-naloxone 5.7-1.4 mg (Zubsolv) 1 tab sublingual DAILY cholecalciferol (vitamin D3) (Vitamin D3) 125 mcg PO DAILY hydrochlorothiazide 25 mg PO DAILY lisinopril 40 mg PO DAILY Tobacco use date assessed: 08/29/22 HPI transfer of care from Dr. Antoine/Requests Physical HPI Details 62-year-old lady with hypertension, dyslipidemia, impaired fasting glucose, here today requesting to change primary care provider and for her physical exam. She is currently taking lisinopril 40 mg daily, hydrochlorothiazide 25 mg daily and atenolol 100 mg once a day for her blood pressure which as per patient has been controlling her blood pressure. Today's blood pressure however showed slightly elevated blood pressure at 140/70. She takes atorvastatin 10 mg daily for her hyperlipidemia, and is currently on buprenorphine-naloxone for treatment of opioid dependence currently being followed at [facility]. She has been trying to lose weigh, has tried several diets and has been trying to do regular exercise, unable to lose any weight at all. Does not want to be referred for bariatric surgery, [facility] Medical History (Updated 02/05/23 @ 15:00 by Leticia Eldridge MD) Anxiety Arthritis Elevated cholesterol Hepatitis Hypertension Impaired fasting glucose Morbid obesity Substance abuse Surgical History History of ankle surgery Hx of cataract extraction Hx of section Hx of tonsillectomy Family History Father Stroke Mother Renal cancer CAD (coronary artery disease) HTN (hypertension) Paternal Grandfather Diabetes mellitus Brother No problems noted. Sister No problems noted. 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 1. Little interest or pleasure in doing things: several days 2. Feeling down, depressed, or hopeless: several days 3. Trouble falling or staying asleep, or sleeping too much: not at all 4. Feeling tired or having little energy: not at all 5. Poor appetite or overeating: nearly every day 6. Feeling bad about yourself - or that you are a failure or have let yourself or your family down: several days 7. Trouble concentrating on things, such as reading the newspaper or watching television: several days 8. Moving or speaking so slowly that other people could have noticed. Or the opposite - being so fidgety or restless that you have been moving around a lot more than usual: not at all 9. Thoughts that you would be better off or of hurting yourself in some way: not at all Total score: 7 Depression Screening Interpretation: Positive (Declines refer for counseling forming medication at present time.) 20741 - PHQ-9 Billing: Yes Source: Developed by Drs. Crow Ulrich, Aydee Oakley, Juvencio Rod and colleagues, with an educational janell from [employer]. Thrive Questionnaire Declines Thrive assessment: No Date Thrive assessed: 08/29/22 I am a: Patient What is your living situation today?: I have a steady place to live Within the past 12 months, did the food you bought not last and you didn't have the money to get more?: Sometimes True Within the past 12 months, did you worry whether your food would run out before you got money to buy more?: Never true Do you have trouble paying for medicines?: No Do you have trouble getting transportation to medical appointments?: No Do you have trouble paying your heating and electricity bill?: Yes Do you have trouble taking care of your child, family member or friend?: No Do you have trouble with day-to-day activities such as bathing, preparing meals, shopping, managing finances, etc.?: No Are you currently unemployed and looking for a job?: No Are you interested in more education?: No AUDIT C Alcohol Use Questionnaire (AUDIT-C) 1. How often do you have a drink containing alcohol?: Never 3. How often do you have six or more drinks on one occasion?: Never Total Score: 0 JON-7 AMB Questionnaire OJN-7 Date JON - 7 assessed: 08/29/22 Feeling nervous, anxious, or on edge: 1 = Several days Not being able to stop or control worryin = Several days Worrying too much about different things: 1 = Several days Trouble relaxin = Several days Being so restless that it is hard to sit still: 1 = Several days Becoming easily annoyed or irritable: 1 = Several days Feeling afraid as if something awful might happen: 0 = Not at all Total JON-7 score (0-4 normal; 5-9 mild; 10-14 moderate; 15-21 severe): 6 Source: Developed by Drs. Crow Ulrich, Aydee Oakley, Jvuencio Rod and colleagues, with an educational janell from [employer]. JON-7 Assessment Billing JON-7 Assessment Tool: JON-7 Assessment 17672 Review of Systems Const Denies body aches, Denies headache(s), Denies malaise and Reports weight gain Eyes Denies change in vision ENT Reports no additional complaints and Denies headache(s) Card Denies chest pain, Denies irregular heart rhythm and Denies lightheadedness Resp Reports no additional complaints GI Denies abdominal pain, Denies melena, Denies bloating, Denies hematochezia and Denies dyspepsia Reports no additional complaints Musc Denies arthralgias, Denies joint swelling and Reports stiffness Skin/Breast Denies breast pain, Denies breast mass and Denies rash Neuro Reports no additional complaints and Denies headache(s) Psych Reports as per HPI Endo Reports no additional complaints Rafael/Lymph Reports no additional complaints Aller/Immun Reports no additional complaints Physical exam (Primary Care) Vital Signs: Last Vital Signs Pulse 70 08/29/22 13:07 BP 140/70 H 08/29/22 13:07 Pulse Ox 97 08/29/22 13:07 Oxygen Delivery Method Room Air 08/29/22 13:07 BMI result Body Mass Index 43.2 Tobacco/Smoking Status: Tobacco use Status Tobacco use date assessed 08/29/22 08/29/22 13:05 Patient Tobacco Use Status Never used Tobacco 08/29/22 13:09 e-Cigarette/Vaping Use Never Used 08/29/22 13:09 PHQ-9: PHQ-9 Score PHQ-9: Total score 7 08/29/22 14:02 Depression Screening Interpretation: Positive (Declines refer for counseling forming medication at present time.) Thrive Assessment: Date of Thrive Assessment Date Thrive assessed 08/29/22 08/29/22 13:13 Const Other: Obese, as alert oriented x3, no acute distress noted, ambulatory normal gait Orientation/consciousness: patient oriented x3 HENMT Head: Yes normocephalic and Yes atraumatic Ears: external ears normal, TM's normal bilaterally and EAC's normal General nose exam: Normal external nose present Face and sinus: Yes face symmetric Mouth: Normal oral and palatal mucosa present, oropharynx normal and moist mucous membranes Eyes General: appearance normal, both eyes and all related structures Neck Neck: Yes full ROM, Yes no lymphadenopathy and Yes supple Thyroid: Thyroid normal Chest Chest palpation & inspection: normal inspection of the chest and normal palpation of entire chest wall Breast/axilla palpation: normal palpation of the breasts Resp Effort & Inspection: normal respiratory effort and able to speak in complete sentences Auscultation: clear to auscultation bilaterally Cardio Rate: regular rate Rhythm: regular rhythm Heart sounds: S1 normal heart sound present and S2 normal heart sound present GI Inspection: Yes obesity Palpation (GI): Soft to palpation, nontender, no guarding and no masses Auscultation: normal bowel sounds General: Yes no CVA tenderness Back/Spine/Pelvis Back: no CVA tenderness and No back tenderness Skin General skin exam: no rashes or lesions noted Neuro General: patient oriented x3, gait normal, Normal light touch and pain sensation, no focal motor deficits and CN's II-XI intact bilaterally Extrem General: Yes full ROM, Yes no joint enlargement and Yes no clubbing, cyanosis or edema Psych Appearance: grossly normal and well kempt Mental Status: mental status grossly normal Speech and movement: Normal speech and movement present Affect: normal affect Thought process: Normal thought process present Thought content: Normal thought content present Assessment and Plan Assessment & Plan (1) Annual physical exam: Code(s): Z00.00 - Encounter for general adult medical examination without abnormal findings Plan: Will check appropriate labs. Recommended dental visit every 6 months and regular eye exams, at least every 2 years. Take adequate calcium in diet and vitamin-D 3 at 2000 IU per cap once a day, in addition to weight-bearing exercises to help maintain good muscle tone and weight control. Instructed to do self-breast exam, and recommended to get yearly mammogram, ordered today. She is up-to-date with her cervical cancer screening, last Pap done 2020 showed negative findings repeat again in 3-years. Up-to-date with her screening colonoscopy done by Dr. Norton done in 2020, due for a recheck again in 2030. She has had her COVID vaccine including booster, gets yearly flu shots, reminded to get her shingles vaccine and Tdap (2) Hypertension: Code(s): I10 - Essential (primary) hypertension Plan: Blood pressure goal is less than 130/80. Continue lisinopril, HCTZ and atenolol at the same dose.. Reinforced importance of following a low sodium diet, getting regular exercise, and lowering stress levels. (3) Elevated cholesterol: Code(s): E78.00 - Pure hypercholesterolemia, unspecified Plan: Will check fasting lipid panel (4) Morbid obesity: Code(s): E66.01 - Morbid (severe) obesity due to excess calories Plan: Patient declines referral for weight loss program, will try on Wegovy , discussed with patient on how to administer the medication and possible side effects that she might encounter when taking it. Combined this with adherence to healthy diet and getting regular exercise to lose weight (5) Low vitamin D level: Code(s): R79.89 - Other specified abnormal findings of blood chemistry Plan: Will check vitamin-D level (6) Impaired fasting glucose: Code(s): R73.01 - Impaired fasting glucose Plan: Your fasting blood sugars elevated above 100 mg/dL. Impaired glucose metabolism O2 at risk for developing diabetes mellitus type 2, as well as heart attack and stroke later on. Lifestyle changes at just weight loss, healthy eating habits, and regular exercise are important, and can prevent the progression to diabetes Orders: Orders MM screening mammo BI 08/29/22 Z12.31 - Encounter for screening mammogram for malignant neoplasm of breast Comprehensive [place]. Panel Fast 08/30/22 R79.89 - Other specified abnormal findings of blood chemistry, I10 - Essential (primary) hypertension, Z00.00 - Encounter for general adult medical examination without abnormal findings, E78.00 - Pure hypercholesterolemia, unspecified, R73.01 - Impaired fasting glucose, E66.9 - Obesity, unspecified Hemoglobin A1c 08/30/22 R79.89 - Other specified abnormal findings of blood chemistry, I10 - Essential (primary) hypertension, Z00.00 - Encounter for general adult medical examination without abnormal findings, E78.00 - Pure hypercholesterolemia, unspecified, R73.01 - Impaired fasting glucose, E66.9 - Obesity, unspecified Lipid Panel 08/30/22 R79.89 - Other specified abnormal findings of blood chemistry, I10 - Essential (primary) hypertension, Z00.00 - Encounter for general adult medical examination without abnormal findings, E78.00 - Pure hypercholesterolemia, unspecified, R73.01 - Impaired fasting glucose, E66.9 - Obesity, unspecified TSH reflex Free T4 08/30/22 R79.89 - Other specified abnormal findings of blood chemistry, I10 - Essential (primary) hypertension, Z00.00 - Encounter for general adult medical examination without abnormal findings, E78.00 - Pure hypercholesterolemia, unspecified, R73.01 - Impaired fasting glucose, E66.9 - Obesity, unspecified Vitamin D 25-OH Total 08/30/22 R79.89 - Other specified abnormal findings of blood chemistry, I10 - Essential (primary) hypertension, Z00.00 - Encounter for general adult medical examination without abnormal findings, E78.00 - Pure hypercholesterolemia, unspecified, R73.01 - Impaired fasting glucose, E66.9 - Obesity, unspecified Complete Blood Count Auto Diff 08/30/22 R79.89 - Other specified abnormal findings of blood chemistry, I10 - Essential (primary) hypertension, Z00.00 - Encounter for general adult medical examination without abnormal findings, E78.00 - Pure hypercholesterolemia, unspecified, R73.01 - Impaired fasting glucose, E66.9 - Obesity, unspecified Medications: New semaglutide (weight loss) (Ora) administer weeks 1 through 4 of therapy 0.25 mg (0.5 mL) subcut QWEEK 2.5 mL 0RF 1 month E66.9 - Obesity, unspecified, R73.01 - Impaired fasting glucose Coding Level of Care Code Est Pt Prev Care 40-64y([id number]) Diagnoses Annual physical exam Z00.00 Hypertension I10 Elevated cholesterol E78.00 Morbid obesity E66.01 Low vitamin D level R79.89 Impaired fasting glucose R73.01 Additional Codes JON-7 Assessment Billing - JON-7 Assessment Tool: JON-7 Assessment 11773 ([id number])
[2022-08-29 13:07] VITALS: BP 140/70; PULSE 70; O2SAT 97; BMI 43.2
== END 2022-08-29 14:11 | disposition home or self-care (01) ==
LOC: HO.HMGC 12:20
PROVIDERS: PCP Internal Medicine; Visit Provider Internal Medicine
DX: Z00.00 Encounter for general adult medical examination without abnormal findings (principal); I10 Essential (primary) hypertension; E66.01 Morbid (severe) obesity due to excess calories; Z68.41 Body mass index [BMI] 40.0-44.9, adult; E78.00 Pure hypercholesterolemia, unspecified; R79.89 Other specified abnormal findings of blood chemistry; R73.01 Impaired fasting glucose
CPT/HCPCS: 99396

== ENCOUNTER 2022-08-30 07:31 | Outpatient (REF) | payer OTHER, SELFPAY ==
[2022-08-30 11:25] LABS: MANUAL DIFF FLAG NO
[2022-08-30 12:03] LABS: Basophils Percent Auto 0.6 % (0-2); Eosinophils Absolute Auto 0.3 X10*3/uL (0.0-0.4); Eosinophils Percent Auto 5.2 % (0-4); Hematocrit 38.5 % (37.0-47.0); Hemoglobin 12.6 g/dl (12.0-16.0); Imm Gran Abs Auto 0.02 X10*3/uL (0.00-0.03); Imm Gran Pct Auto 0.4 % (0.0-0.4); Lymphocytes Absolute Auto 1.7 X10*3/uL (1.2-4.9); Mean Corpuscular HGB Conc 32.7 g/dl (31.0-35.0); Mean Corpuscular Hemoglobin 27.9 pg (27.0-33.0); Mean Corpuscular Volume 85.4 fL (80.0-98.0); Mean Platelet Volume 9.6 fL (9.4-12.3); Monocytes Absolute Auto 0.3 X10*3/uL (0.1-1.2); Monocytes Percent Auto 6.3 % (2-11); Neutrophils Percent Auto 55.5 % (45-73); Platelet Count 287 X10*3/uL (160-400); Red Blood Count 4.51 X10*6/uL (4.20-5.50); White Blood Count 5.4 X10*3/uL (4.8-10.8)
[2022-08-30 12:30] LABS: Estimated Average Glucose 123 mg/dL; Hemoglobin A1c % 5.9 %
[2022-08-30 16:35] LABS: Alanine Aminotransferase 22 U/L (0-31); Alkaline Phosphatase 75 U/L (39-117); Anion Gap 13 (12-20); Aspartate Amino Transferase 22 U/L (5-31); Bilirubin Total 0.3 mg/dL (0.0-1.0); Blood Urea Nitrogen 12 mg/dL (9-16); Calcium 9.3 mg/dL (8.4-10.2); Carbon Dioxide 32 mmol/L (22-29); Chloride 102 mmol/L (96-108); Cholesterol 159 mg/dL; Estimated Glomerular Filt Rate > 60; Glucose Fasting 114 mg/dL (60-99); HDL Cholesterol 64 mg/dL; LDL Cholesterol Calculated 81 mg/dl; Sodium 143 mmol/L (135-145); TSH reflex Free T4 1.12 uIU/mL (0.32-4.0); Total Protein 6.8 g/dL (6.5-8.0); Triglycerides 70 mg/dL
== END 2022-08-30 07:32 | disposition home or self-care (01) ==
LOC: HO.HMGCLDS 07:31
PROVIDERS: PCP Internal Medicine; Visit Provider Internal Medicine
DX: Z00.00 Encounter for general adult medical examination without abnormal findings (principal); I10 Essential (primary) hypertension; R79.89 Other specified abnormal findings of blood chemistry; E78.00 Pure hypercholesterolemia, unspecified; R73.01 Impaired fasting glucose; E66.9 Obesity, unspecified
CPT/HCPCS: 36415; 80053; 80061; 82306; 83036; 84443; 85025

== ENCOUNTER 2023-02-05 10:19 | Emergency (ER) | payer OTHER, SELFPAY ==
[2023-02-05 10:47] VITALS: BP 185/85; PULSE 86; RESP 18; TEMP 37; O2SAT 98; BMI 45.8
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
== END 2023-02-05 13:32 | disposition home or self-care (01) ==
PROVIDERS: Emergency Provider Emergency Medicine; PCP Internal Medicine
DX: K13.0 Diseases of lips (principal); T78.40XA Allergy, unspecified, initial encounter; X58.XXXA Exposure to other specified factors, initial encounter; Z79.899 Other long term (current) drug therapy
CPT/HCPCS: 99282; 99283

== ENCOUNTER 2023-07-30 11:32 | Outpatient (AMB) | payer OTHER, SELFPAY ==
[2023-07-30 12:35] VITALS: BP 150/90; PULSE 89; TEMP 37.8; O2SAT 95; BMI 41.6
--- NOTE | 2023-07-30 12:35 | AM.OFFWIN_ITS ---
Intake Vital Signs 07/30/23 12:35 Height 5 ft 6 in Weight 258 lb BMI 41.6 BP 150/90 H Blood Pressure Location Lt brachial Position Sitting Pulse 89 Pulse Source Pulse Oximeter Temp 100.1 F Temp Source Temporal Artery Scan Pulse Oximetry (%) 95 Oxygen Delivery Method Room Air Intake Visit Reasons: EP cough fluid in lungs Intake Note: pt is here today for cough fluid in lungs started 1 week ago Patient Tobacco Use Status: Never used Tobacco Allergies No Known Allergies Allergy (Verified 07/30/23 12:47) Medication List - Last Reconciled 07/30/23 by CAMACHO Cain atenolol 100 mg PO DAILY atorvastatin 10 mg PO BEDTIME buprenorphine-naloxone 2.9-0.71 mg (Zubsolv) tabs sublingual buprenorphine-naloxone 5.7-1.4 mg (Zubsolv) 1 tab sublingual DAILY cholecalciferol (vitamin D3) (Vitamin D3) 125 mcg PO DAILY hydrochlorothiazide 25 mg PO DAILY lisinopril 40 mg PO DAILY semaglutide (weight loss) (Wegovy) 0.25 mg (0.5 mL) subcut QWEEK 1 month Do you need a note to return to daycare/school/sports/work: No HPI HPI Comments History of Present Illness Details Patient is a 63-year-old female in today for a sick visit. Patient has a past medical history significant for hyperlipidemia, hypertension, and impaired fasting glucose. Patient reports that for the past several days she has developed symptoms of cough, chest congestion, headache. She has tried some [id number] medication with little relief. Denies sick contacts. Denies nausea, vomiting, chest pain, shortness a breath, numbness, dizziness, diarrhea. [facility] Medical History Morbid obesity Impaired fasting glucose Substance abuse Arthritis Hepatitis Elevated cholesterol Hypertension Anxiety Surgical History Hx of tonsillectomy Hx of section History of ankle surgery Hx of cataract extraction Family History Father Stroke Mother Renal cancer CAD (coronary artery disease) HTN (hypertension) Paternal Grandfather Diabetes mellitus Brother No problems noted. Sister No problems noted. 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) Cognitive needs: No Hearing needs: No Vision needs: No Review of Systems Const All systems reviewed & are unremarkable except as noted in HPI and below Reports fatigue and Reports headache(s) Eyes Denies blurry vision ENT Denies dizziness, Reports headache(s) and Reports nasal congestion Card Denies chest pain and Denies dyspnea Resp Reports cough, Denies dyspnea and Reports wheezing GI Denies diarrhea, Denies nausea and Denies vomiting Neuro Denies dizziness and Reports headache(s) Endo Reports fatigue Aller/Immun Reports wheezing Physical Exam Vital Signs: Last Vital Signs Temp 100.1 F 07/30/23 12:35 Pulse 89 07/30/23 12:35 BP 150/90 H 07/30/23 12:35 Pulse Ox 95 07/30/23 12:35 Oxygen Delivery Method Room Air 07/30/23 12:35 BMI result Body Mass Index 41.6 Const Other: Appearance: Alert.? Oriented X3.? No acute distress.? Head: Normocephalic. Eyes: Pupils equal, round and reactive to light.? ENT: Pharynx normal.?TM intact and pearly baumann. Neck: Normal inspection.? Neck supple.?Full ROM. CVS: Normal heart rate and rhythm.? Pulses normal.? Respiratory: No respiratory distress.? Slight bilateral wheeze upper lobes. Abdomen: Soft and nontender.? Neuro: Oriented X 3.? No motor deficit.? No sensory deficit. CN 2-12 intact Assessment & Plan Assessment & Plan (1) Upper respiratory infection: Comment: Patient had chest x-ray. Will prescribe albuterol, prednisone, benzonatate. Patient has been instructed to take the medication as directed. He has been educated on signs of worsening symptoms and when to report back to the walk-in or when to present to the ED. Patient states she understands. Code(s): J06.9 - Acute upper respiratory infection, unspecified Qualifiers: URI type: unspecified URI Qualified Code(s): J06.9 - Acute upper respiratory infection, unspecified Plan: Take your medications as prescribed. If you were prescribed antibiotics today, it is important that you take your medication to their entirety, do not skip any doses, do not finish them early. Follow-up with your primary care provider this week. Return to the emergency department with new or worsening symptoms. Such as fevers, chills, chest pain, shortness of breath, nausea, vomiting, dizziness, headache, vision changes, lethargy In case of emergency call 911 Plan Follow-up with PCP Orders: Orders XR chest 2V Today R09.89 - Other specified symptoms and signs involving the circulatory and respiratory systems Medications: New albuterol sulfate 90 mcg/actuation 1 inh inhalation QID PRN 6.7 grams 0RF shortness of breath or wheezing prednisone 20 mg PO BID 10 tabs 0RF benzonatate 100 mg PO BID PRN 30 caps 0RF cough Coding Level of Care Code Est Pt Level 3 (55079) Diagnoses Upper respiratory tract infection, unspecified type J06.9 URI type: unspecified URI Time Spent (min) 22
== END 2023-07-30 13:19 | disposition home or self-care (01) ==
PROVIDERS: PCP Internal Medicine; Visit Provider Nurse Practitioner Primary Care
DX: J06.9 Acute upper respiratory infection, unspecified (principal)
CPT/HCPCS: 99213

== ENCOUNTER 2023-07-30 12:58 | Outpatient (REF) | payer OTHER, SELFPAY ==
--- NOTE | ~2023-07-30 | XR_ITS ---
EXAMINATION: XR CHEST CLINICAL INFORMATION: Chest pain. COMPARISON: Chest 08/01/2022 TECHNIQUE: 2 views of the chest were obtained. FINDINGS: No significant abnormality is noted involving the heart, lungs, mediastinum, bony thorax or soft tissues. XR/XR chest 2V IMPRESSION: Unremarkable chest examination.
== END 2023-07-30 12:59 | disposition home or self-care (01) ==
LOC: HO.HMGCX 12:58
PROVIDERS: PCP Internal Medicine; Visit Provider Nurse Practitioner Primary Care
DX: R09.89 Other specified symptoms and signs involving the circulatory and respiratory systems (principal)
CPT/HCPCS: 71046

== ENCOUNTER 2023-08-13 10:07 | Outpatient (AMB) | payer OTHER, SELFPAY ==
[2023-08-13 10:13] VITALS: BP 132/80; PULSE 66; TEMP 36.3; O2SAT 98
--- NOTE | 2023-08-13 10:13 | AM.OFFWIN_ITS ---
Intake Vital Signs 08/13/23 10:13 Height 5 ft 6 in BMI Reason not done Patient refused/unable BP 132/80 Blood Pressure Location Lt brachial Position Sitting Pulse 66 Pulse Source Pulse Oximeter Temp 97.4 F Temp Source Temporal Artery Scan Pulse Oximetry (%) 98 Oxygen Delivery Method Room Air Intake Visit Reasons: EP flu symptoms lasting 3 weeks Intake Note: pt is here today for flu symptoms started 3 weeks ago Patient Tobacco Use Status: Never used Tobacco Allergies No Known Allergies Allergy (Verified 08/13/23 10:14) Medication List - Last Reconciled 08/13/23 by RASHAUN Whittington albuterol sulfate 90 mcg/actuation 1 inh inhalation QID PRN atenolol 100 mg PO DAILY atorvastatin 10 mg PO BEDTIME buprenorphine-naloxone 2.9-0.71 mg (Zubsolv) tabs sublingual hydrochlorothiazide 25 mg PO DAILY lisinopril 40 mg PO DAILY Do you need a note to return to daycare/school/sports/work: Yes HPI HPI Comments History of Present Illness Details 63-year-old female who comes in today co mplaining of continued symptoms of the flu after 3 weeks. She states her only symptoms now are occasional diaphoresis, some mild congestion. She also states she is fatigued and feeling depressed about being tired. She was seen a week ago and her chest x-ray was negative for pneumonia. She is asking for a Z-Wilian today [facility] Medical History Morbid obesity Impaired fasting glucose Substance abuse Arthritis Hepatitis Elevated cholesterol Hypertension Anxiety Surgical History Hx of tonsillectomy Hx of section History of ankle surgery Hx of cataract extraction Family History Father Stroke Mother Renal cancer CAD (coronary artery disease) HTN (hypertension) Paternal Grandfather Diabetes mellitus Brother No problems noted. Sister No problems noted. 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) Cognitive needs: No Hearing needs: No Vision needs: No Review of Systems Const Reports chills, Reports fatigue, Reports fever(s) and Reports weakness ENT Reports nasal discharge Resp Reports chest congestion and Reports cough Neuro Reports behavioral changes and Reports weakness Psych Reports behavioral changes Endo Reports fatigue Physical Exam Vital Signs: Last Vital Signs Temp 97.4 F 08/13/23 10:13 Pulse 66 08/13/23 10:13 BP 132/80 08/13/23 10:13 Pulse Ox 98 08/13/23 10:13 Oxygen Delivery Method Room Air 08/13/23 10:13 Const General: in distress mild HEENT Head: Yes normal to inspection, Yes normocephalic and Yes atraumatic Ears: hearing grossly normal bilaterally, external ears normal and TM's normal bilaterally General nose exam: Normal external nose present Face and sinus: Yes normal facial exam and Yes sinuses nontender Mouth: Normal oral and palatal mucosa present Teeth and gingiva: dentition normal Throat: Yes posterior oropharynx normal Eyes General: appearance normal, both eyes and all related structures Resp Effort & Inspection: normal respiratory effort Auscultation: clear to auscultation bilaterally Cardio Rate: regular rate Rhythm: regular rhythm Heart sounds: S1 normal heart sound present and S2 normal heart sound present GI Inspection: Yes normal to inspection Palpation (GI): Soft to palpation Percussion: Yes normal to percussion Auscultation: normal bowel sounds Psych Appearance: grossly normal and well kempt Speech and movement: Normal speech and movement present Affect: normal affect Attitude: cooperative Thought process: Normal thought process present Thought content: Normal thought content present Insight: Good insight present (Psych) Judgement: Good judgement present (Psych) Assessment & Plan Assessment & Plan (1) Upper respiratory infection: Comment: I ordered a CBC and a CMP today and encouraged the patient to push fluids. She will follow up with her PCP Code(s): J06.9 - Acute upper respiratory infection, unspecified Qualifiers: URI type: unspecified URI Qualified Code(s): J06.9 - Acute upper respiratory infection, unspecified Plan: The patient will get the results of CBC and CMP tomorrow follow up with her PCP Plan See plan Orders: Orders Complete Blood Count Auto Diff Today Z13.0 - Encounter for screening for diseases of the blood and blood-forming organs and certain disorders involving the immune mechanism UA CC w/rflx Micro + Cult Today E86.0 - Dehydration SARS-CoV2/FLU/RSV Today J06.9 - Acute upper respiratory infection, unspecified Comprehensive Met. Panel Today Z91.89 - Other specified personal risk factors, not elsewhere classified Coding Level of Care Code Est Pt Level 3 (77072) Diagnoses Upper respiratory tract infection, unspecified type J06.9 URI type: unspecified URI Time Spent (min) 20
== END 2023-08-13 11:39 | disposition home or self-care (01) ==
PROVIDERS: PCP Internal Medicine; Visit Provider Physician Assistant Medical
DX: J06.9 Acute upper respiratory infection, unspecified (principal)
CPT/HCPCS: 99213

== ENCOUNTER 2023-08-13 11:01 | Outpatient (REF) | payer OTHER, SELFPAY ==
[2023-08-13 13:21] LABS: MANUAL DIFF FLAG NO
[2023-08-13 13:22] LABS: Appearance Urine Clear; Color Urine Yellow; Glucose Urine UA Negative (Negative); Leukocyte Esterase Urine Negative (Negative); Nitrite Urine Negative (Negative); PH 5.5 (5.0-9.0); Specific Gravity - Urine 1.015 (1.005-1.025); Urine Blood Negative (Negative); Urine Ketones Negative (Negative); Urine Protein Negative (Neg-Trace)
[2023-08-13 13:37] LABS: Basophils Absolute Auto 0.1 X10*3/uL (0.0-0.2); Basophils Percent Auto 0.6 % (0-2); Eosinophils Absolute Auto 0.2 X10*3/uL (0.0-0.4); Eosinophils Percent Auto 2.3 % (0-4); Hematocrit 43.1 % (37.0-47.0); Hemoglobin 14.2 g/dl (12.0-16.0); Imm Gran Abs Auto 0.02 X10*3/uL (0.00-0.03); Imm Gran Pct Auto 0.2 % (0.0-0.4); Lymphocytes Absolute Auto 2.3 X10*3/uL (1.2-4.9); Lymphocytes Percent Auto 28.1 % (20-40); Mean Corpuscular HGB Conc 32.9 g/dl (31.0-35.0); Mean Corpuscular Hemoglobin 28.6 pg (27.0-33.0); Mean Corpuscular Volume 86.7 fL (80.0-98.0); Mean Platelet Volume 9.2 fL (9.4-12.3); Monocytes Absolute Auto 0.6 X10*3/uL (0.1-1.2); Monocytes Percent Auto 7.4 % (2-11); Neutrophils Percent Auto 61.4 % (45-73); Platelet Count 385 X10*3/uL (160-400); Red Blood Count 4.97 X10*6/uL (4.20-5.50); Red Cell Distribution Width 11.9 % (11.0-16.0); White Blood Count 8.1 X10*3/uL (4.8-10.8)
[2023-08-13 13:46] LABS: Alanine Aminotransferase 37 U/L (0-31); Albumin Level 4.2 g/dL (3.5-5.0); Alkaline Phosphatase 104 U/L (39-117); Anion Gap 14 (12-20); Aspartate Amino Transferase 21 U/L (5-31); Bilirubin Total 0.3 mg/dL (0.0-1.0); Blood Urea Nitrogen 19 mg/dL (9-16); Calcium 9.8 mg/dL (8.4-10.2); Carbon Dioxide 30 mmol/L (22-29); Chloride 99 mmol/L (96-108); Estimated Glomerular Filt Rate > 60; Glucose Random 105 mg/dL (60-115); Sodium 139 mmol/L (135-145); Total Protein 8.4 g/dL (6.5-8.0)
== END 2023-08-13 11:02 | disposition home or self-care (01) ==
LOC: HO.HMGCLDS 11:01
PROVIDERS: PCP Internal Medicine; Visit Provider Nurse Practitioner Primary Care
DX: E86.0 Dehydration (principal); J06.9 Acute upper respiratory infection, unspecified; Z13.0 Encounter for screening for diseases of the blood and blood-forming organs and certain disorders involving the immune mechanism; Z91.89 Other specified personal risk factors, not elsewhere classified
CPT/HCPCS: 36415; 80053; 81003; 85025

== ENCOUNTER 2023-12-30 13:48 | Outpatient (AMB) | payer OTHER, SELFPAY ==
--- NOTE | 2023-12-30 13:50 | A.OFFPC_ITS ---
Vital Signs 12/30/23 13:52 Height 5 ft 6 in Weight 291 lb BMI 47.0 BP 124/82 Blood Pressure Location Lt brachial Position Sitting Pulse 84 Pulse Source Pulse Oximeter Pulse Oximetry (%) 98 Oxygen Delivery Method Room Air Intake Visit Reasons: BP, med review Intake Note: pt is here for BP f/u and med review Allergies No Known Allergies Allergy (Verified 12/30/23 14:08) Medication List - Last Reconciled 12/30/23 by CAMACHO Cain albuterol sulfate 90 mcg/actuation 1 puff inhalation QID PRN atenolol 100 mg PO DAILY atorvastatin 10 mg PO BEDTIME buprenorphine-naloxone 2.9-0.71 mg (Zubsolv) tabs sublingual hydrochlorothiazide 25 mg PO DAILY lisinopril 40 mg PO DAILY Tobacco use date assessed: 12/30/23 HPI HPI Comments History of Present Illness Details Patient is a 63 year old female in for a medication review for hypertension. Lost her prescription of lisinopril had not taken it for several days, she did get that refilled was able to take The medication for the past couple of days. Currently utilizing atenolol 100 mg p.o. daily, lisinopril 40 mg p.o. daily, and hydrochlorothiazide 25 mg p.o. daily. Patient's blood pressure is controlled at today's appointment. She also reports wanting to start with Semaglutide. She has elevated BMI, and has gained over 25 pounds over the past 6 months. She says she exercises and walks everyday. Patient has no history of thyroid cancer or pancreatitis. Will order the medication and then also give referral to puppet developer. [facility] Medical History Morbid obesity Impaired fasting glucose Substance abuse Arthritis Hepatitis Elevated cholesterol Hypertension Anxiety Surgical History Hx of tonsillectomy Hx of section History of ankle surgery Hx of cataract extraction Family History Father Stroke Mother Renal cancer CAD (coronary artery disease) HTN (hypertension) Paternal Grandfather Diabetes mellitus Brother No problems noted. Sister No problems noted. 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 1. Little interest or pleasure in doing things: not at all 2. Feeling down, depressed, or hopeless: nearly every day 3. Trouble falling or staying asleep, or sleeping too much: not at all 4. Feeling tired or having little energy: nearly every day 5. Poor appetite or overeating: nearly every day 6. Feeling bad about yourself - or that you are a failure or have let yourself or your family down: nearly every day 7. Trouble concentrating on things, such as reading the newspaper or watching television: nearly every day 8. Moving or speaking so slowly that other people could have noticed. Or the opposite - being so fidgety or restless that you have been moving around a lot more than usual: not at all 9. Thoughts that you would be better off or of hurting yourself in some way: not at all Total score: 15 Depression Screening Interpretation: Positive Depression Screening Done: Yes 86090 - PHQ-9 Billing: Yes Source: Developed by Drs. Crow Ulrich, Aydee Oakley, Juvencio Rod and colleagues, with an educational janell from [employer]. Thrive Questionnaire Date Thrive assessed: 12/30/23 I am a: Patient What is your living situation today?: I have a steady place to live Within the past 12 months, did the food you bought not last and you didn't have the money to get more?: Never true Within the past 12 months, did you worry whether your food would run out before you got money to buy more?: Never true Do you have trouble paying for medicines?: No Do you have trouble getting transportation to medical appointments?: No Do you have trouble paying your heating and electricity bill?: No Do you have trouble taking care of your child, family member or friend?: No Do you have trouble with day-to-day activities such as bathing, preparing meals, shopping, managing finances, etc.?: No Are you currently unemployed and looking for a job?: No Are you interested in more education?: No Please select the resources that you would like help with: None THRIVE Score: 0 AUDIT C Alcohol Use Questionnaire (AUDIT-C) 1. How often do you have a drink containing alcohol?: Never 3. How often do you have six or more drinks on one occasion?: Never Total Score: 0 JON-7 AMB Questionnaire JON-7 Date JON - 7 assessed: 12/30/23 Feeling nervous, anxious, or on edge: 1 = Several days Not being able to stop or control worryin = Nearly every day Worrying too much about different things: 3 = Nearly every day Trouble relaxin = Nearly every day Being so restless that it is hard to sit still: 0 = Not at all Becoming easily annoyed or irritable: 1 = Several days Feeling afraid as if something awful might happen: 0 = Not at all Total JON-7 score (0-4 normal; 5-9 mild; 10-14 moderate; 15-21 severe): 11 Source: Developed by Drs. Crow Ulrich, Aydee Oakley, Juvencio Rod and colleagues, with an educational janell from [employer]. JON-7 Assessment Billing JON-7 Assessment Tool: JON-7 Assessment 69268 Review of Systems Const All systems reviewed & are unremarkable except as noted in HPI and below Physical exam (Primary Care) Vital Signs: Last Vital Signs Pulse 84 12/30/23 13:52 BP 124/82 12/30/23 13:52 Pulse Ox 98 12/30/23 13:52 Oxygen Delivery Method Room Air 12/30/23 13:52 BMI result Body Mass Index 47.0 Tobacco/Smoking Status: Tobacco use Status Tobacco use date assessed 12/30/23 12/30/23 13:51 Patient Tobacco Use Status Never used Tobacco 12/30/23 13:51 e-Cigarette/Vaping Use Never Used 12/30/23 13:51 PHQ-9: PHQ-9 Score PHQ-9: Total score 15 12/30/23 14:14 Depression Screening Interpretation: Positive Thrive Assessment: Date of Thrive Assessment Date Thrive assessed 12/30/23 12/30/23 13:58 Const Other: Appearance: Alert.? Oriented X3.? No acute distress.? Head: Normocephalic, atraumatic, no step-offs or deformities Eyes: Pupils equal, round and reactive to light.?EOMI. CVS: Normal heart rate and rhythm.? Pulses normal.? Respiratory: No respiratory distress.? Breath sounds normal.? Abdomen: Soft and nontender.? Neuro: Oriented X 3.? No motor deficit.? No sensory deficit. CN 2-12 intact Assessment and Plan Assessment & Plan (1) Obesity: Comment: Will give referral to puppet developer and give semaglutide. Patient has been educated on signs of worsening symptoms. Code(s): E66.9 - Obesity, unspecified Qualifiers: Obesity type: unspecified obesity type Obesity classification: unspecified obesity classification Serious obesity comorbidity presence: unspecified whether serious comorbidity present Qualified Code(s): E66.9 - Obesity, unspecified (2) Hypertension: Comment: Currently utilizing atenolol 100 mg p.o. daily, lisinopril 40 mg p.o. daily, and hydrochlorothiazide 25 mg p.o. daily. Patient's blood pressure is controlled at today's appointment. Code(s): I10 - Essential (primary) hypertension Qualifiers: Hypertension type: unspecified Qualified Code(s): I10 - Essential (primary) hypertension Orders: Referrals Lead Architect Nutrition Referral E66.9 - Obesity, unspecified Medications: New semaglutide (weight loss) (Ora) administer weeks 1 through 4 of therapy 0.25 mg (0.5 mL) subcut QWEEK 2 mL 0RF Coding Level of Care Code Est Pt Level 3 (31103) Diagnoses Obesity, unspecified classification, unspecified obesity type, unspecified whether serious comorbidity present E66.9 Obesity type: unspecified obesity type Obesity classification: unspecified obesity classification Serious obesity comorbidity presence: unspecified whether serious comorbidity present Hypertension, unspecified type I10 Hypertension type: unspecified Additional Codes JON-7 Assessment Billing - JON-7 Assessment Tool: JON-7 Assessment 10081 ([id number]) Time Spent (min) 27
[2023-12-30 13:52] VITALS: BP 124/82; PULSE 84; O2SAT 98; BMI 47.0
== END 2023-12-30 14:16 | disposition home or self-care (01) ==
PROVIDERS: PCP Internal Medicine; Visit Provider Nurse Practitioner Primary Care
DX: I10 Essential (primary) hypertension (principal); E66.9 Obesity, unspecified; Z68.42 Body mass index [BMI] 45.0-49.9, adult
CPT/HCPCS: 99213

== ENCOUNTER 2024-01-27 13:36 | Outpatient (AMB) | payer OTHER, SELFPAY ==
--- NOTE | 2024-01-27 14:05 | A.OFFPC_ITS ---
Vital Signs 01/27/24 14:06 Height 5 ft 6 in Weight 280 lb BMI 45.2 BP 138/88 Blood Pressure Location Rt brachial Position Sitting Pulse 70 Pulse Source Pulse Oximeter Pulse Oximetry (%) 98 Oxygen Delivery Method Room Air Intake Visit Reasons: weigh in for wgt loss med Intake Note: Pt is here today for her weigh in Allergies No Known Allergies Allergy (Verified 01/31/24 23:22) Medication List - Last Reconciled 01/31/24 by Leticia Eldridge MD albuterol sulfate 90 mcg/actuation 1 puff inhalation QID PRN atenolol 100 mg PO DAILY atorvastatin 10 mg PO BEDTIME buprenorphine-naloxone 2.9-0.71 mg (Zubsolv) tabs sublingual hydrochlorothiazide 25 mg PO DAILY lisinopril 40 mg PO DAILY semaglutide (weight loss) (Wegovy) 0.5 mg (0.5 mL) subcut QWEEK Tobacco use date assessed: 01/27/24 Dental Screening Dental Screen Date: 01/27/24 Did you have a dental visit in the last 12 months?: No Did you have a dental problem in the last 6 months where you did not have access to dental care?: No Was dental information given to patient?: Patient declined HPI weigh in for wgt loss med HPI Details 63-year-old lady here today for follow-u p regarding her weight loss. Currently on we go be now at 0.5 mg once a week. Started taking medication at least a month ago, and has lost now about 9 lb since starting it. Has been feeling well, denies any adverse effects from the medication, combined this with diet and exercise. [facility] Medical History (Updated 01/31/24 @ 23:30 by Leticia Eldridge MD) Morbid obesity with BMI of 45.0-49.9, adult Morbid obesity Impaired fasting glucose Substance abuse Arthritis Hepatitis Elevated cholesterol Hypertension Anxiety Surgical History Hx of tonsillectomy Hx of section History of ankle surgery Hx of cataract extraction Family History Father Stroke Mother Renal cancer CAD (coronary artery disease) HTN (hypertension) Paternal Grandfather Diabetes mellitus Brother Mental health disorder Sister No problems noted. 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 2. Feeling down, depressed, or hopeless: not at all 3. Trouble falling or staying asleep, or sleeping too much: several days 4. Feeling tired or having little energy: not at all 5. Poor appetite or overeating: several days 6. Feeling bad about yourself - or that you are a failure or have let yourself or your family down: not at all 7. Trouble concentrating on things, such as reading the newspaper or watching television: not at all 8. Moving or speaking so slowly that other people could have noticed. Or the opposite - being so fidgety or restless that you have been moving around a lot more than usual: not at all 9. Thoughts that you would be better off or of hurting yourself in some way: not at all Depression Screening Interpretation: Negative Depression Screening Done: Yes 41495 - PHQ-9 Billing: Yes Source: Developed by Drs. Crow Ulrich, Aydee Oakley, Juvencio Rod and colleagues, with an educational janell from [employer]. Thrive Questionnaire Date Thrive assessed: 12/30/23 I am a: Patient What is your living situation today?: I have a steady place to live Within the past 12 months, did the food you bought not last and you didn't have the money to get more?: Often true Within the past 12 months, did you worry whether your food would run out before you got money to buy more?: Never true Do you have trouble paying for medicines?: No Do you have trouble getting transportation to medical appointments?: No Do you have trouble paying your heating and electricity bill?: No Do you have trouble taking care of your child, family member or friend?: No Do you have trouble with day-to-day activities such as bathing, preparing meals, shopping, managing finances, etc.?: No Are you currently unemployed and looking for a job?: No Are you interested in more education?: No Please select the resources that you would like help with: Housing/Fpc Currently or been in a relationship where the following occur: I choose not to answer THRIVE Score: 1 AUDIT C Alcohol Use Questionnaire (AUDIT-C) 1. How often do you have a drink containing alcohol?: Never Total Score: 0 JON-7 AMB Questionnaire JON-7 Date JON - 7 assessed: 12/30/23 Feeling nervous, anxious, or on edge: 1 = Several days Not being able to stop or control worryin = Several days Worrying too much about different things: 1 = Several days Trouble relaxin = Several days Being so restless that it is hard to sit still: 1 = Several days Becoming easily annoyed or irritable: 1 = Several days Feeling afraid as if something awful might happen: 0 = Not at all Total JON-7 score (0-4 normal; 5-9 mild; 10-14 moderate; 15-21 severe): 6 Source: Developed by Drs. Crow Ulrich, Aydee Oakley, Juvencio Rod and colleagues, with an educational janell from [employer]. Review of Systems Const Denies fatigue, Denies fever(s), Denies headache(s) and Denies weakness Eyes Denies change in vision ENT Denies dizziness, Denies headache(s), Denies nasal congestion and Denies nasal discharge Card Denies chest pain, Denies lightheadedness, Denies palpitations and Denies dyspnea Resp Denies chest congestion, Denies cough and Denies dyspnea GI Denies abdominal pain, Denies change in bowel habits, Denies heartburn and Denies nausea Denies urinary frequency, Denies dysuria and Denies urinary urgency Neuro Denies dizziness, Denies headache(s) and Denies weakness Endo Denies fatigue, Denies polydipsia, Denies polyuria and Denies palpitations Physical exam (Primary Care) Vital Signs: Last Vital Signs Pulse 70 01/27/24 14:06 BP 138/88 01/27/24 14:06 Pulse Ox 98 01/27/24 14:06 Oxygen Delivery Method Room Air 01/27/24 14:06 BMI result Body Mass Index 45.2 Tobacco/Smoking Status: Tobacco use Status Tobacco use date assessed 01/27/24 01/27/24 14:14 Patient Tobacco Use Status Never used Tobacco 01/27/24 14:08 e-Cigarette/Vaping Use Never Used 01/27/24 14:08 Depression Screening Interpretation: Negative Thrive Assessment: Date of Thrive Assessment Date Thrive assessed 12/30/23 01/27/24 14:08 Currently or been in a relationship where the following occur: I choose not to answer Const General: no acute distress and alert Orientation/consciousness: patient oriented x3 HENMT Ears: external ears normal General nose exam: Normal external nose present and No nasal discharge present Mouth: Normal oral and palatal mucosa present, oropharynx normal and moist mucous membranes Eyes General: appearance normal, both eyes and all related structures Neck Neck: Yes full ROM, Yes no lymphadenopathy and Yes supple Resp Effort & Inspection: normal respiratory effort and able to speak in complete sentences Auscultation: clear to auscultation bilaterally Cardio Rate: regular rate Rhythm: regular rhythm Heart sounds: S1 normal heart sound present and S2 normal heart sound present GI Palpation (GI): Soft to palpation, nontender and no masses Auscultation: normal bowel sounds Skin General skin exam: no rashes or lesions noted Neuro General: patient oriented x3, gait normal, tone normal, moves all extremities, Normal light touch and pain sensation and no focal motor deficits Cranial nerves: Yes CN's II-XII intact bilaterally Cognition (Neuro): normal cognition Psych Appearance: grossly normal and well kempt Mental Status: mental status grossly normal Speech and movement: Normal speech and movement present Affect: normal affect Attitude: cooperative Thought process: Normal thought process present Thought content: Normal thought content present Assessment and Plan Assessment & Plan (1) Morbid obesity with BMI of 45.0-49.9, adult: Code(s): E66.01 - Morbid (severe) obesity due to excess calories; Z68.42 - Body mass index [BMI] 45.0-49.9, adult Plan: Has lost approximately 9 lb in 1 month on we go be, currently now at 0.5 mg given subcutaneously once a week. Tolerating medication well, has been combining with diet and exercise, prescription refill sent and will have her come back for follow-up in 2 months. Discussed possible side effects of medication which may include increased risk for pancreatitis and formation of gallstones, nausea, diarrhea after injection and abdominal cramping advised to stop taking medication if any of these symptoms develop Medications: New semaglutide (weight loss) (Wegovy) 0.5 mg (0.5 mL) subcut QWEEK 2 mL 1RF Discontinued semaglutide (weight loss) (Wegovy) administer weeks 1 through 4 of therapy Discontinued Reason: Doctor's Order 0.25 mg (0.5 mL) subcut QWEEK 2 mL 0RF Coding Level of Care Code Est Pt Level 3 (31005) Diagnoses Morbid obesity with BMI of 45.0-49.9, adult E66.01; Z68.42
[2024-01-27 14:06] VITALS: BP 138/88; PULSE 70; O2SAT 98; BMI 45.2
== END 2024-01-27 14:58 | disposition home or self-care (01) ==
PROVIDERS: PCP Internal Medicine; Visit Provider Internal Medicine
DX: E66.01 Morbid (severe) obesity due to excess calories (principal); Z68.42 Body mass index [BMI] 45.0-49.9, adult
CPT/HCPCS: 99213